=== PATIENT | female | born 2000 | race Caucasian/White ===

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

== ENCOUNTER 2019-02-18 13:51 | Emergency (ER) | payer BC ==
[2019-02-18 16:07] VITALS: BP 117/71
--- NOTE | 2019-02-18 16:17 | UC ---
Throat Pain/Nasal Robert HPI - HPI Summary HPI Summary: Pt presents with c/o cough X 1 month and sudden onset of lass of voice X 3 days. Pt denies fver, chills, body aches of malaise. Denies nasal congestion or cough. - History of Current Complaint Chief Complaint: UCRespiratory Stated Complaint: COUGH, VOICE LOSS Time Seen by Provider: 02/18/19 16:03 Hx Obtained From: Patient Hx Last Menstrual Period: 02/10/19 ?: No Onset/Duration: Sudden Onset - loss of voice, Gradual Onset - coug Severity: Mild Pain Intensity: 0 Cough: Nonproductive Associated Signs & Symptoms: Positive: Hoarseness Related History: Seasonal Allergies - Epiglottits Risk Factors Epiglottis Risk Factors: Negative - Allergies/Home Medications Allergies/Adverse Reactions: Allergies Allergy/AdvReac Type Severity Reaction Status Date / Time amoxicillin Allergy unknown, Verified 02/18/19 16:08 strong Family Hx Penicillins Allergy unknown, Verified 02/18/19 16:08 strong family hx red food dye Allergy Swelling Uncoded 02/18/19 16:08 Of Face,Lips,& Throat Home Medications: Home Medications O C 1 tab PO QPM 02/18/19 [History Confirmed 02/18/19] PMH/Surg Hx/FS Hx/Imm Hx Previously Healthy: Yes - Surgical History Surgical History: None - Family History Known Family History: Negative: Respiratory Disease - Social History Occupation: Student Lives: Dormitory/Roommates Alcohol Use: Occasionally Substance Use Type: None Smoking Status (MU): Never Smoked Tobacco Have You Smoked in the Last Year: No - Immunization History Vaccination Up to Date: Yes Review of Systems All Other Systems Reviewed And Are Negative: Yes Constitutional: Positive: Negative Skin: Positive: Negative Eyes: Positive: Negative ENT: Positive: Other - hoarseness Respiratory: Positive: Cough Cardiovascular: Positive: Negative Gastrointestinal: Positive: Negative Genitourinary: Positive: Negative Motor: Positive: Negative Neurovascular: Positive: Negative Musculoskeletal: Positive: Negative Neurological: Positive: Negative Psychological: Positive: Negative Is Patient Immunocompromised?: No Physical Exam Triage Information Reviewed: Yes Appearance: Well-Appearing Vital Signs: Initial Vital Signs Temp 98.2 F 02/18/19 16:01 Pulse 80 02/18/19 16:01 Resp 18 02/18/19 16:01 BP 117/71 02/18/19 16:01 Pulse Ox 100 02/18/19 16:01 Vital Signs Reviewed: Yes Eye Exam: Normal ENT Exam: Normal ENT: Positive: Tonsillar swelling, Hoarse voice Dental Exam: Normal Neck exam: Normal Respiratory Exam: Normal Cardiovascular Exam: Normal Musculoskeletal Exam: Normal Neurological Exam: Normal Psychological Exam: Normal Skin Exam: Normal Throat Pain/Nasal Course/Dx - Differential Dx/Diagnosis Differential Diagnosis/HQI/PQRI: Laryngitis, Pharyngitis Provider Diagnosis: Laryngitis, Cough Discharge - Sign-Out/Discharge Documenting (check all that apply): Patient Departure All imaging exams completed and their final reports reviewed: No Studies - Discharge Plan Condition: Stable Disposition: HOME Prescriptions: Cetirizine* [ZyrTEC 10 MG TAB*] 10 mg PO DAILY #20 tab predniSONE TAB* [Deltasone 20 MG TAB*] 20 mg PO DAILY #4 tab Patient Education Materials: Laryngitis (ED) Referrals: Bairon Caicedo MD [Primary Care Provider] - If Needed - Billing Disposition and Condition Condition: STABLE Disposition: Home
== END 2019-02-18 16:41 | disposition home or self-care (01) ==
LOC: UCCORT 13:51
DX: J04.0 Acute laryngitis (principal); R05 Cough; Z88.0 Allergy status to penicillin; Z91.02 Food additives allergy status
CPT/HCPCS: 99212; G0463

== ENCOUNTER 2019-07-15 09:42 | Emergency (ER) | payer BC ==
[2019-07-15 09:54] VITALS: BP 110/75
--- NOTE | 2019-07-15 10:32 | UC ---
Lower Extremity/Ankle HPI - HPI Summary HPI Summary: 19 yo female injured left great toe and foot yesterday in dance hurts to bear wt - History of Current Complaint Chief Complaint: UCLowerExtremity Stated Complaint: LEFT GREAT TOE INJURY Time Seen by Provider: 07/15/19 09:44 Hx Obtained From: Patient Hx Last Menstrual Period: 07/07/19 Onset/Duration: Sudden Onset Severity Initially: Moderate Severity Currently: Mild Pain Intensity: 2 Pain Scale Used: 0-10 Numeric Aggravating Factor(s): Standing, Ambulation Alleviating Factor(s): Rest Able to Bear Weight: Yes Feet (Multiple View): 1 - pain/tenderness - Allergies/Home Medications Allergies/Adverse Reactions: Allergies Allergy/AdvReac Type Severity Reaction Status Date / Time amoxicillin Allergy unknown, Verified 07/15/19 09:50 strong Family Hx Penicillins Allergy unknown, Verified 07/15/19 09:50 strong family hx red (food color) Allergy Swelling Verified 07/15/19 09:50 Of Face,Lips,& Throat red dye Allergy Swelling Verified 07/15/19 09:50 Of Face,Lips,& Throat Home Medications: Home Medications Ibuprofen TAB* [Advil TAB*] 400 mg PO Q6H PRN 07/15/19 [History Confirmed ] Norethindrone-E.estradiol-Iron [Lo Loestrin Fe 1-10 Tablet] 1 each PO DAILY [History Confirmed 07/15/19] PMH/Surg Hx/FS Hx/Imm Hx Previously Healthy: Yes - Surgical History Surgical History: None - Family History Known Family History: Positive: Cardiac Disease, Hypertension, Diabetes Negative: Respiratory Disease - Social History Alcohol Use: Occasionally Substance Use Type: None Smoking Status (MU): Never Smoked Tobacco Have You Smoked in the Last Year: No - Immunization History Vaccination Up to Date: Yes Review of Systems All Other Systems Reviewed And Are Negative: Yes Constitutional: Positive: Negative Skin: Positive: Negative Eyes: Positive: Negative ENT: Positive: Negative Respiratory: Positive: Negative Cardiovascular: Positive: Negative Gastrointestinal: Positive: Negative Genitourinary: Positive: Negative Musculoskeletal: Positive: Arthralgia - left foot and great toe Neurological: Positive: Negative Psychological: Positive: Negative Physical Exam Triage Information Reviewed: Yes Appearance: Well-Appearing, No Pain Distress, Well-Nourished Vital Signs: Initial Vital Signs Temp 98.6 F 07/15/19 09:48 Pulse 88 07/15/19 09:48 Resp 16 07/15/19 09:48 BP 110/75 07/15/19 09:48 Pulse Ox 100 07/15/19 09:48 Vital Signs Reviewed: Yes Eyes: Positive: Conjunctiva Clear ENT: Positive: Pharynx normal. Negative: Nasal congestion, Nasal drainage, Trismus, Muffled voice Neck: Positive: Supple, Nontender Respiratory: Positive: Lungs clear, Normal breath sounds, No respiratory distress Musculoskeletal: Positive: Other: - see image, antalgic gait Neurological Exam: Normal Neurological: Positive: Alert Psychological Exam: Normal Skin Exam: Normal Diagnostics - Radiology No standard instances Radiology Interpretation Completed By: Radiologist Summary of Radiographic Findings: no fx Lower Extremity Course/Dx - Differential Dx/Diagnosis Provider Diagnosis: Sprain of left foot Discharge ED - Sign-Out/Discharge Documenting (check all that apply): Patient Departure All imaging exams completed and their final reports reviewed: Yes - Discharge Plan Condition: Stable Disposition: HOME Patient Education Materials: Sprain (ED), Post Surgical Shoe (ED) Referrals: [facility] [Outside] - 1 Week (recheck in 5-10 days) Additional Instructions: ice twice daily advil or aleve I suggest follow up - Billing Disposition and Condition Condition: STABLE Disposition: Home
== END 2019-07-15 10:35 | disposition home or self-care (01) ==
LOC: UCCORT 09:42
DX: S93.602A Unspecified sprain of left foot, initial encounter (principal); X58.XXXA Exposure to other specified factors, initial encounter; Y93.41 Activity, dancing; Y92.9 Unspecified place or not applicable
CPT/HCPCS: 99212; G0463